=== PATIENT | female | born 1960 | race Caucasian/White ===

== ENCOUNTER → 2016-12-08 | Outpatient (CLI) | payer BC | LOC: CT 08:00 | DX: R10.31 Right lower quadrant pain (principal); K40.90 Unilateral inguinal hernia, without obstruction or gangrene, not specified as recurrent | CPT/HCPCS: 72192 ==

== ENCOUNTER → 2020-09-10 | Outpatient (CLI) | payer BC ==
[~2020-09-10] MED LIST: LODINE CAP 300300 MG PO
== END ==
LOC: RAD 11:52
DX: M79.604 Pain in right leg (principal)
CPT/HCPCS: 73502

== ENCOUNTER 2020-10-04 20:38 | Emergency (ER) | payer BC, OTHER ==
[2020-10-05] MEDS ORDERED: LODINE CAP 300300 MG PO (00:34)
== END 2020-10-05 01:50 | disposition home or self-care (01) ==
LOC: ER1 20:38
DX: S02.2XXA Fracture of nasal bones, initial encounter for closed fracture (principal); S01.111A Laceration without foreign body of right eyelid and periocular area, initial encounter; I10 Essential (primary) hypertension; Y92.009 Unspecified place in unspecified non-institutional (private) residence as the place of occurrence of the external cause; W01.0XXA Fall on same level from slipping, tripping and stumbling without subsequent striking against object, initial encounter
CPT/HCPCS: 70450; 99283

== ENCOUNTER → 2020-10-13 | Outpatient (CLI) | payer BC, OTHER | LOC: MAMO 07:51 | DX: Z12.31 Encounter for screening mammogram for malignant neoplasm of breast (principal) | CPT/HCPCS: 77063; 77067 ==

== ENCOUNTER → 2021-11-04 | Outpatient (CLI) | payer BC | LOC: MAMO 10-12 09:30 | DX: Z12.31 Encounter for screening mammogram for malignant neoplasm of breast (principal) | CPT/HCPCS: 77063; 77067 ==

== ENCOUNTER → 2022-05-09 | Outpatient (CLI) | payer BC | LOC: US 10:47 → KOH-I 10:47 → US 11:00 | DX: I83.893 Varicose veins of bilateral lower extremities with other complications (principal); M79.604 Pain in right leg; M79.605 Pain in left leg; M54.50 Low back pain, unspecified; M43.17 Spondylolisthesis, lumbosacral region; M47.816 Spondylosis without myelopathy or radiculopathy, lumbar region; I73.9 Peripheral vascular disease, unspecified | CPT/HCPCS: 72100; 93922; 93925; 93970 ==